=== PATIENT | female | born 1990 | race Hispanic/Latino ===

== ENCOUNTER 2017-09-06 03:55 | Emergency (ER) | payer OTHER, SELFPAY | END 2017-09-06 06:25 | disposition home or self-care (01) | LOC: ERS 03:55 | DX: J32.9 Chronic sinusitis, unspecified (principal); F41.9 Anxiety disorder, unspecified; F32.9 Major depressive disorder, single episode, unspecified | CPT/HCPCS: 99283 ==

== ENCOUNTER → 2020-10-04 | Emergency (ER) | payer SELFPAY | LOC: ERS 02:14 | DX: Z53.21 Procedure and treatment not carried out due to patient leaving prior to being seen by health care provider (principal) ==